=== PATIENT | male | born 1955 | race Caucasian/White ===

== ENCOUNTER 2020-01-29 22:23 | Observation (INO) ==
[2020-01-29] MEDS ORDERED: Ondansetron 4 MG/2 ML VIAL IVP ONE (22:53)
[2020-01-29] MEDS ORDERED: 0.9 % Sodium Chloride 1,000 ML IVC ONE (22:53)
[2020-01-29 23:10] LABS: Basophils % 0.2 %; Eosinophils # 0.3 K/mcL (0.0-0.6); Eosinophils % 3.6 %; Hematocrit 38.1 % (37.5-50.1); Immature Granulocytes % 0.2 % (0-4); Lymphocytes # 1.3 K/mcL (0.6-4.6); Lymphocytes % 13.6 %; Mean Corpuscular HGB Conc 34.1 g/dL (31.6-35.5); Mean Platelet Volume 8.9 fL (9.4-12.4); Monocytes # 1.1 K/mcL (0.0-1.3); Monocytes % 11.8 %; Neutrophils # 6.7 K/mcL (1.6-8.9); Platelet Count 191 K/mcL (140-400); Red Blood Count 4.33 M/mcL (4.19-5.50); Segmented Neutrophils % 70.6 %; White Blood Count 9.4 K/mcL (4.3-11.1)
[2020-01-29 23:23] LABS: Bilirubin,Urine Negative (Negative); Blood,Urine Negative (Negative); Clarity,Urine Clear (Clear); Color,Urine Colorless (Yellow); Glucose,Urine (UA) Normal (Normal); Ketones,Urine Negative (Negative); Leukocyte Esterase,Urine Negative (Negative); Nitrite,Urine Negative (Negative); Protein,Urine Negative (Neg-Trace); Specific Gravity,Urine 1.013 (1.010-1.025); Urobilinogen,Urine Normal (Normal)
[2020-01-29 23:30] LABS: Albumin 4.1 g/dL (3.5-5.7); Albumin/Globulin Ratio 1.7 (1.1-2.2); Bilirubin,Direct 0.1 mg/dL (0.0-0.2); Bilirubin,Indirect 0.4 mg/dL (0.0-1.0); Bilirubin,Total 0.5 mg/dL (0.3-1.0); Calcium 8.9 mg/dL (8.6-10.3); Globulin 2.4 g/dL (2.4-3.5); Potassium 3.9 mEq/L (3.5-5.1); Total Protein 6.5 g/dL (6.4-8.9)
[2020-01-30] MEDS ORDERED: *HR* FentaNYL (PF) 100 MCG/2 ML VIAL IVP ONE (00:05)
[2020-01-30] MEDS ORDERED: *HR* HYDROmorphone (PF) 1 MG/ML SYRINGE IVP ONE (00:33)
[2020-01-30] MEDS ORDERED: *HR* OxyCODONE/APAP 10/325 TABLET PO PRN (00:45)
[2020-01-30] MEDS ORDERED: Ondansetron 4 MG/2 ML VIAL IVP PRN (00:46)
[2020-01-30] MEDS ORDERED: *HR* Metoprolol 5 MG/5 ML VIAL IVP PRN (00:47)
[2020-01-30 01:53] LABS: Adenovirus Not Detected (Not Detect); Bordetella Pertussis Not Detected (Not Detect); Chlamydophila pneumoniae Not Detected (Not Detect); Coronavirus 229E Not Detected (Not Detect); Coronavirus HKU1 Not Detected (Not Detect); Coronavirus NL63 Not Detected (Not Detect); Coronavirus OC43 Not Detected (Not Detect); Human Metapneumovirus Not Detected (Not Detect); Human Rhinovirus/Enterovirus Not Detected (Not Detect); Influenza A Subtype 2009 H1 Not Detected (Not Detect); Influenza B Not Detected (Not Detect); Mycoplasma pneumoniae Not Detected (Not Detect); Parainfluenza Virus 1 Not Detected (Not Detect); Parainfluenza Virus 2 Not Detected (Not Detect); Parainfluenza Virus 3 Not Detected (Not Detect); Parainfluenza Virus 4 Not Detected (Not Detect); Respiratory Syncytial Virus Not Detected (Not Detect); SARS-CoV-2 Not Detected (Not Detect)
[2020-01-30] MEDS: 0.9 % Sodium Chloride 1,000 ML IVC SCH ×2 (02:03→15:37)
[2020-01-30] MEDS ORDERED: *HR* Propofol 200 MG/20 ML VIAL IVP ONE ×3 (07:49→08:05)
[2020-01-30] MEDS ORDERED: *HR* FentaNYL (PF) 100 MCG/2 ML VIAL ONE ×2 (07:49→08:04)
[2020-01-30] MEDS ORDERED: Lidocaine -MPF 2% 2 ML VIAL ONE (07:49)
[2020-01-30] MEDS ORDERED: *HR* Succinylcholine 200 MG/10 ML VIAL IVP ONE (07:49)
[2020-01-30] MEDS ORDERED: Dexamethasone 4 MG/ML VIAL ONE (07:49)
[2020-01-30] MEDS ORDERED: Ondansetron 4 MG/2 ML VIAL ONE (07:49)
[2020-01-30] MEDS ORDERED: *HR* HYDROMORPHONE 2 MG/ML VIAL ONE (07:56)
[2020-01-30] MEDS ORDERED: ceFAZolin 1,000 MG, Sodium Chloride IRRigation 1,000 ML IR ONE (09:00)
[2020-01-30] MEDS ORDERED: *HR* Promethazine 25 MG/ML VIAL IVP PRN (11:46)
[2020-01-30] MEDS ORDERED: *HR* HYDROcodone/Acet 5/325 mg TABLET PO PRN (11:46)
[2020-01-30] MEDS ORDERED: Naloxone 0.4 MG/ML INJ IVP PRN (11:46)
[2020-01-30] MEDS: *HR* Heparin 5,000 UNIT/ML VIAL SQ SCH (17:52)
[2020-01-31] MEDS: 0.9 % Sodium Chloride 1,000 ML IVC SCH (04:26)
[2020-01-31 05:31] LABS: Basophils % 0.3 %; Eosinophils # 0.3 K/mcL (0.0-0.6); Eosinophils % 4.2 %; Hematocrit 39.2 % (37.5-50.1); Hemoglobin 12.9 g/dL (12.9-16.9); Immature Granulocytes % 0.3 % (0-4); Lymphocytes # 0.9 K/mcL (0.6-4.6); Lymphocytes % 13.6 %; Mean Corpuscular HGB Conc 32.9 g/dL (31.6-35.5); Mean Corpuscular Hemoglobin 28.9 pg (28.0-33.3); Mean Corpuscular Volume 87.9 fL (83.0-100.0); Monocytes # 0.8 K/mcL (0.0-1.3); Monocytes % 11.2 %; Neutrophils # 4.7 K/mcL (1.6-8.9); Platelet Count 185 K/mcL (140-400); Red Blood Count 4.46 M/mcL (4.19-5.50); Red Cell Distribution Width 11.9 % (11.5-14.5); Segmented Neutrophils % 70.4 %; White Blood Count 6.7 K/mcL (4.3-11.1)
[2020-01-31] MEDS: *HR* Heparin 5,000 UNIT/ML VIAL SQ SCH (05:36)
[2020-01-31 05:48] LABS: BUN/Creatinine Ratio 19 (6-26); Blood Urea Nitrogen 14 mg/dL (8-23); Calcium 8.6 mg/dL (8.6-10.3); Carbon Dioxide 26 mEq/L (23-29); Chloride 109 mEq/L (98-107); Glucose 114 mg/dL (70-105); Osmolality,Calculated 289 (280-300); Sodium 139 mEq/L (136-145); eGFR For African Americans > 60 (> 60); eGFR For Non-African Americans > 60 (> 60)
[2020-01-31] MEDS ORDERED: lisinopriL 10 MG TABLET PO SCH (09:00)
[2020-01-31] MEDS ORDERED: Clindamycin 900 MG/50 ML 900 MG/50 ML IV.SOLN IVPB ONE ×2 (14:30→16:59)
[2020-01-31] MEDS ORDERED: *HR* OxyCODONE Immed Rel 5 MG TABLET PO PRN (14:36)
[2020-01-31] MEDS ORDERED: *HR* HYDROmorphone PF 0.5 MG/0.5 ML SYRINGE IVP PRN (14:36)
[2020-01-31] MEDS ORDERED: *HR* FentaNYL (PF) 100 MCG/2 ML VIAL ONE ×2 (14:58→14:59)
[2020-01-31] MEDS ORDERED: Dexamethasone 4 MG/ML VIAL ONE (14:59)
[2020-01-31] MEDS ORDERED: *HR* Succinylcholine 200 MG/10 ML VIAL IVP ONE (14:59)
[2020-01-31] MEDS ORDERED: *HR* Propofol 200 MG/20 ML VIAL IVP ONE (14:59)
[2020-01-31] MEDS ORDERED: Lidocaine -MPF 2% 2 ML VIAL ONE (14:59)
[2020-01-31] MEDS ORDERED: *HR* Rocuronium Bromide 50 MG/5 ML VIAL ONE ×2 (14:59→15:36)
[2020-01-31] MEDS ORDERED: Ondansetron 4 MG/2 ML VIAL ONE (14:59)
[2020-01-31] MEDS ORDERED: *HR* Magnesium Sulfate 1 GM/2 ML VIAL ONE (15:11)
[2020-01-31] MEDS ORDERED: Ketorolac 30 MG/ML VIAL ONE (15:48)
[2020-01-31] MEDS ORDERED: Naloxone 0.4 MG/ML INJ IVP PRN (16:34)
[2020-01-31] MEDS ORDERED: Ondansetron 4 MG/2 ML VIAL IVP PRN (16:34)
[2020-01-31] MEDS ORDERED: *HR* Metoprolol 5 MG/5 ML VIAL IVP PRN (16:34)
[2020-01-31] MEDS ORDERED: *HR* OxyCODONE/APAP 10/325 TABLET PO PRN (16:34)
[2020-01-31] MEDS ORDERED: *HR* Promethazine 25 MG/ML VIAL IVP PRN (16:34)
[2020-01-31 18:48] VITALS: BP 152/84
[2020-02-01] MEDS ORDERED: lisinopriL 10 MG TABLET PO SCH (09:00)
== END 2020-01-31 20:12 | disposition home or self-care (01) ==
LOC: EMEROOARM 22:23 → 3ANU 22:23
PROVIDERS: ADMIT Surgery; ATTEND Surgery